=== PATIENT | male | born 1970 | race Caucasian/White ===

== ENCOUNTER → 2018-02-03 | Outpatient (CLI) | payer OTHER ==
[~2018-02-03] MED LIST: ADVAI250I; ALBU6.7H INH; LISI-590 PO; PERC5TAB12 OR; Z.0.NO CURRENT MEDS
[2018-02-03 14:39] LABS: WET PREP SPERM NONE SEEN /HPF (NONE SEEN)
== END ==
LOC: CLAB 13:48
PROVIDERS: ATTEND Urology
DX: Z30.2 Encounter for sterilization (principal)
CPT/HCPCS: 89321